=== PATIENT | male | born 1965 | race Caucasian/White ===

== ENCOUNTER 2021-03-05 13:01 | Outpatient (REF) | payer OTHER, SELFPAY | END 2021-03-05 13:02 | disposition home or self-care (01) | LOC: HO.BBR 13:01 | PROVIDERS: PCP Internal Medicine; Visit Provider Internal Medicine Gastroenterology | DX: Z13.89 Encounter for screening for other disorder (principal) ==

== ENCOUNTER 2022-08-30 10:49 | Outpatient (REF) | payer OTHER, SELFPAY | END 2022-08-30 10:50 | disposition home or self-care (01) | LOC: HO.BBR 10:49 | PROVIDERS: Visit Provider Internal Medicine | DX: Z13.89 Encounter for screening for other disorder (principal) ==

== ENCOUNTER 2022-09-15 09:22 | Outpatient (REF) | payer OTHER, SELFPAY | END 2022-09-15 09:23 | disposition home or self-care (01) | LOC: HO.BBR 09:22 | PROVIDERS: PCP Internal Medicine; Visit Provider Internal Medicine | DX: Z13.89 Encounter for screening for other disorder (principal) ==

== ENCOUNTER 2022-09-29 10:04 | Outpatient (REF) | payer OTHER, SELFPAY | END 2022-09-29 10:05 | disposition home or self-care (01) | LOC: HO.BBR 10:04 | PROVIDERS: PCP Internal Medicine; Visit Provider Internal Medicine | DX: Z13.89 Encounter for screening for other disorder (principal) ==

== ENCOUNTER 2022-10-13 10:59 | Outpatient (REF) | payer OTHER, SELFPAY | END 2022-10-13 11:00 | disposition home or self-care (01) | LOC: HO.BBR 10:59 | PROVIDERS: PCP Internal Medicine; Visit Provider Internal Medicine | DX: Z13.89 Encounter for screening for other disorder (principal) ==

== ENCOUNTER 2022-10-27 10:02 | Outpatient (REF) | payer OTHER, SELFPAY | END 2022-10-27 10:03 | disposition home or self-care (01) | LOC: HO.BBR 10:02 | PROVIDERS: Visit Provider Internal Medicine | DX: Z13.89 Encounter for screening for other disorder (principal) ==

== ENCOUNTER 2022-11-10 11:12 | Outpatient (REF) | payer OTHER, SELFPAY | END 2022-11-10 11:13 | disposition home or self-care (01) | LOC: HO.BBR 11:12 | PROVIDERS: Visit Provider Internal Medicine | DX: Z13.89 Encounter for screening for other disorder (principal) ==

== ENCOUNTER 2024-12-17 09:56 | Outpatient (REF) | payer OTHER, SELFPAY | END 2024-12-17 09:57 | disposition home or self-care (01) | LOC: HO.BBR 09:56 | PROVIDERS: PCP Internal Medicine; Visit Provider Internal Medicine | DX: R79.89 Other specified abnormal findings of blood chemistry (principal) | CPT/HCPCS: 85018; 99195 ==

== ENCOUNTER 2025-01-28 13:06 | Outpatient (REF) | payer OTHER, SELFPAY | END 2025-01-28 13:07 | disposition home or self-care (01) | LOC: HO.BBR 13:06 | PROVIDERS: PCP Internal Medicine; Visit Provider Internal Medicine | DX: Z13.89 Encounter for screening for other disorder (principal) ==

== ENCOUNTER 2025-03-25 11:04 | Outpatient (REF) | payer OTHER, SELFPAY | END 2025-03-25 11:05 | disposition home or self-care (01) | LOC: HO.BBR 11:04 | PROVIDERS: PCP Internal Medicine; Visit Provider Internal Medicine | DX: Z13.89 Encounter for screening for other disorder (principal) ==

== ENCOUNTER 2025-04-29 12:54 | Outpatient (REF) | payer OTHER, SELFPAY | END 2025-04-29 12:55 | disposition home or self-care (01) | LOC: HO.BBR 12:54 | PROVIDERS: Visit Provider Internal Medicine | DX: Z13.89 Encounter for screening for other disorder (principal) ==